=== PATIENT | male | born 1970 | race Caucasian/White ===

== ENCOUNTER 2019-12-30 12:37 | Emergency (ER) | payer OTHER, SELFPAY ==
[2019-12-30 12:45] VITALS: BP 119/64; PULSE 61; RESP 16; TEMP 36.4; O2SAT 100
--- NOTE | 2019-12-30 12:46 | ED.URI ---
HPI - URI/Sore Throat General Chief Complaint: Upper Respiratory Infection Stated Complaint: sinus issues Source: patient and RN notes reviewed Limitations: no limitations History of Present Illness HPI Narrative: The active patient, who is a non-smoker/occ drinker presents with sinus problems. Patient states he has been seen by ENT and had surgery a couple years ago; additionally he has had 3 courses of antibiotics in the first half of the year [Augmentin, Levaquin, etc. in Apr/June/August 2019]. He complains of typical 2-week history of sinus headache, nasal congestion despite OTC preparations like Zyrtec and Flonase. No fever measured, loss of taste/smell, travel history, CP, rash, S OB, cough, N/V/D,no triggers: no Smokers-but he does have pets at home. Symptoms are mild, worse at night, associated with sneezing-without wheezing. Patient advised to see ENT in follow-up Related Data Home Medications Medication Instructions Recorded Confirmed losartan-hydrochlorothiazide tablet 12/30/19 omeprazole 12/30/19 Allergies Allergy/AdvReac Type Severity Reaction Status Date / Time No Known Drug Allergies Allergy Mild none Verified 01/08/19 11:48 Review of Systems Review of Systems: Narrative: General/Constitutional: No weight loss,fever Eyes: N0: Redness,discharge Ears/Nose/Throat: No: Epistaxis,ear discharge Respiratory: Denies: Hemoptysis Gastrointestinal: No Vomiting, Bleeding-rectal Skin: No Lumps, eruption Neurologic: No Focal Weakness,Sz Hematologic: Denies: Petechiae/Purpura Psychiatric: No: Suicida ideationl All Other Systems: Reviewed and Negative PMFSH Comments At time of signature, agree with nursing past medical, surgical, social and family history. There is no relevant family history pertinent to the presenting complaint Exam Narrative: Exam Narrative: General Appearance: Well appearing, Conjunctiva clear Nose: Rhinorrhea, Mucousal erythema Mouth/Throat: MM moist, absent, Pharyngeal erythema Supple Respiratory: No respiratory distress, Breath sounds equal, Clear to auscultation Musculoskeletal: Non tender, Normal strength Skin: Warm, Dry Neurological: A&O x3, Normal affect Course Vital Signs Vital signs: Vital Signs Temperature 97.6 F 12/30/19 12:45 Pulse Rate 61 12/30/19 12:45 Respiratory Rate 16 12/30/19 12:45 Blood Pressure 119/64 12/30/19 12:45 Pulse Oximetry 100 12/30/19 12:45 Temperature 97.6 F 12/30/19 12:45 Pulse Rate 61 12/30/19 12:45 Respiratory Rate 16 12/30/19 12:45 Blood Pressure 119/64 12/30/19 12:45 Pulse Oximetry 100 12/30/19 12:45 Discharge Plan Discharge Clinical Impression: Sinus headache Patient Disposition: Home, Self-Care Condition: Stable Instructions: Antibiotic Form, Sinusitis (ED) Prescriptions: New azithromycin 250 mg tablet See Rx Instructions .ROUTE .COMPLEX Qty: 6 RF: 0 azelastine 137 mcg (0.1 %) aerosol,spray 137 mcg NASAL Q12H Qty: 30 RF: 0 montelukast [Singulair] 10 mg tablet 10 mg PO HS Qty: 20 RF: 2 [id number] [Fioricet] 50-300-40 mg capsule 1 cap PO Q8H PRN (Reason: pain) Qty: 7 RF: 1 No Action omeprazole 40 mg capsule,delayed release(DR/EC) RF: 0 losartan-hydrochlorothiazide 100-12.5 mg tablet RF: 0 Other Ambulatory Orders: SARS-CoV-2 RNA, Qual RT-PCR (Routine) Location: Determined by Patient Ordered By: Carl Cruz Follow-up/Referrals: Aguilar,Carl Garner MD [Primary Care Provider] - Discharge Date/Time: 12/30/19 13:10
== END 2019-12-30 13:10 | disposition home or self-care (01) ==
PROVIDERS: Emergency Provider Emergency Medicine; PCP Family Medicine
DX: R51.9 Headache, unspecified (principal); Z20.828 Contact with and (suspected) exposure to other viral communicable diseases; I10 Essential (primary) hypertension; K21.9 Gastro-esophageal reflux disease without esophagitis
CPT/HCPCS: 99213; G0463

== ENCOUNTER 2020-09-16 15:26 | Emergency (ER) | payer OTHER, SELFPAY ==
[2020-09-16 15:34] VITALS: BP 120/68; PULSE 77; RESP 16; TEMP 36.9; O2SAT 100
--- NOTE | 2020-09-16 16:00 | ED.URI ---
HPI - URI/Sore Throat General Chief Complaint: Upper Respiratory Infection Stated Complaint: no voice/drainage/sore throat/[place] Time Seen by Provider: 09/16/20 15:51 Source: patient and RN notes reviewed Mode of arrival: ambulatory Limitations: no limitations History of Present Illness HPI Narrative: Patient presents today complaining of sinus congestion and drainage times several weeks. Patient was on a course of amoxicillin and June which provided some temporary relief of symptoms, then a course of Augmentin that he started at the end of July for 10 days. States his symptoms returned after several days of stopping this as well. He also complains of a 3-day history of voice hoarseness and a 4-day history of sore throat. Denies shortness of breath, fever, cough. He is a non-smoker. Denies history of COPD or asthma. History of 2 sinus surgeries and does have an ENT physician. He has been using Tylenol, ibuprofen, Sudafed, guaifenesin with some mild short-term relief. MD elicited complaint: sore throat and nasal congestion Related Data Home Medications Medication Instructions Recorded Confirmed losartan-hydrochlorothiazide 12.5 tablet PO DAILY 12/30/19 09/16/20 omeprazole 40 mg PO DAILY 12/30/19 09/16/20 cetirizine [Zyrtec] 10 mg PO DAILY 09/16/20 09/16/20 fluticasone propionate [Flonase] 50 mcg INTRANASAL DAILY 09/16/20 09/16/20 Allergies Allergy/AdvReac Type Severity Reaction Status Date / Time No Known Drug Allergies Allergy Mild none Verified 09/16/20 15:40 Review of Systems Review of Systems: Narrative: CONSTITUTIONAL: Denies body aches, fever, chills, or sweats. EYES: Denies visual changes, redness, or discharge. ENT: Denies rhinorrhea, or otalgia.+ Throat, congestion, postnasal drip, hoarseness CARDIOVASCULAR: Denies chest pain, palpitations, or edema. RESPIRATORY: Denies cough or dyspnea. GASTROINTESTINAL: Denies abdominal pain, nausea, vomiting, or diarrhea. GENITOURINARY: Denies dysuria or hematuria. SKIN: Denies rash, itching, or wounds. MUSCULOSKELETAL: Denies back pain, joint pain, or myalgia. NEUROLOGIC: Denies headache, numbness, tingling, or weakness. PSYCH: Denies depression or anxiety. [facility] Past Medical History Medical History (Updated 09/16/20 @ 16:05 by Vania Del Rosario, EPHRAIM, ) GERD (gastroesophageal reflux disease) Hypertension Surgical History Surgical History (Updated 09/16/20 @ 16:03 by Vania Del Rosario, EPHRAIM, ) H/O sinus surgery Comments At time of signature, I have reviewed and agree with nursing past medical, surgical, social and family history unless otherwise noted. Please see nursing chart for further information. There is no relevant family history pertinent to the presenting complaint Exam Narrative: Exam Narrative: GENERAL: Well-appearing, well-nourished, and in no acute distress. HEAD: Normocephalic, atraumatic. EYES: EOMI. No redness or drainage. Conjunctivae normal. ENT: Mucous membranes pink and moist. Nares congested. No rhinorrhea. TMs normal bilaterally. Throat erythematous without edema or exudate. Uvula midline. Voice is very hoarse. NECK: Normal AROM. Supple. No lymphadenopathy. CHEST: No respiratory distress. Clear to auscultation. HEART: Regular rate and rhythm. No murmur appreciated. Normal peripheral pulses. EXTREMITIES: Normal range of motion. No edema. SKIN: Warm, dry, no rash. Capillary refill normal. Normal skin turgor. NEURO: No focal deficits. Alert and oriented x3. Gait steady. PSYCH: Normal affect. No signs of depression or anxiety. Course Vital Signs Vital signs: Vital Signs Temperature 98.5 F 09/16/20 15:34 Pulse Rate 77 09/16/20 15:34 Respiratory Rate 16 09/16/20 15:34 Blood Pressure 120/68 09/16/20 15:34 Pulse Oximetry 100 09/16/20 15:34 Temperature 98.5 F 09/16/20 15:34 Pulse Rate 77 09/16/20 15:34 Respiratory Rate 16 09/16/20 15:34 Blood Pressure 120/68 09/16/20 15:34 Pulse Oximetry 100
== END 2020-09-16 16:14 | disposition home or self-care (01) ==
PROVIDERS: Emergency Provider Nurse Practitioner; PCP Family Medicine
DX: J04.0 Acute laryngitis (principal); J01.91 Acute recurrent sinusitis, unspecified; K21.9 Gastro-esophageal reflux disease without esophagitis; I10 Essential (primary) hypertension
CPT/HCPCS: 87081; 87880; 99213; G0463

== ENCOUNTER 2020-10-14 17:03 | Emergency (ER) | payer OTHER, SELFPAY ==
--- NOTE | ~2020-10-14 | XR_ITS ---
EXAMINATION: XR sinus min 3V EXAM DATE: 10/14/2020 17:39 INDICATION: Sinusitis in the sphenoid sinuses. TECHNIQUE: Frontal, Christopher's, lateral and submental vertex of the paranasal sinuses. There is no len or study for comparison. FINDINGS: Paranasal sinuses appear well aerated. Please note that mild mucoperiosteal thickening not well detected by x-ray. Sphenoid sinuses are visualized on the lateral and submental vertex projecti ons and also appear aerated. Mild rightward nasal septal deviation. Orbits and soft tissues are unrem arkable. IMPRESSION: 1. No x-ray evidence of sinus opacity. Reviewed, dictated and finalized at location A.
[2020-10-14 17:15] VITALS: BP 119/78; PULSE 59; RESP 16; TEMP 36.6; O2SAT 100
--- NOTE | 2020-10-14 17:18 | ED.URI ---
HPI - URI/Sore Throat General Chief Complaint: Upper Respiratory Infection Stated Complaint: sinus issues History of Present Illness HPI Narrative: This is a 50-year-old male comes in complaining of nasal drainage, cough, hoarseness denies any fever denies any nausea vomiting and/or diarrhea. Patient believes he has a sinus infection in his Sphenoid area because he had surgery and that is the area that was not totally open. Patient has been on 4 round of antibiotics in the last three months and he states his symptoms clear up but it comes back 2-3 day after the symptoms start. Patient states he takes allergy medication and intranasal steroid. Patient inform me that he has had a sore throat and hoariness that has come back. Patient has explained to me that these antibiotic clear him up . Related Data Home Medications Medication Instructions Recorded Confirmed losartan-hydrochlorothiazide 12.5 tablet PO DAILY 12/30/19 09/16/20 omeprazole 40 mg PO DAILY 12/30/19 09/16/20 cetirizine [Zyrtec] 10 mg PO DAILY 09/16/20 09/16/20 fluticasone propionate [Flonase] 50 mcg INTRANASAL DAILY 09/16/20 09/16/20 Allergies Allergy/AdvReac Type Severity Reaction Status Date / Time No Known Drug Allergies Allergy Mild none Verified 09/16/20 15:40 Review of Systems Review of Systems: Narrative: CONSTITUTIONAL: Denies fever, chills, or sweats. EYES: Denies visual changes, redness, or discharge. ENT: Reports rhinorrhea, congestion, sore throat, or otalgia. CARDIOVASCULAR:Denies chest pain, palpitations, or edema. RESPIRATORY: Denies cough or dyspnea. GASTROINTESTINAL: Denies abdominal pain, nausea, vomiting, or diarrhea. GENITOURINARY: Denies dysuria or hematuria. SKIN:[Denies rash or itching. MUSCULOSKELETAL:Denies back pain, joint pain, or myalgia. NEUROLOGIC: Denies headache, numbness, or weakness. PSYCHIATRIC:Denies anxiety or depression [facility] Past Medical History Medical History (Updated 10/14/20 @ 18:10 by Eugenie Hagen, DALTON) GERD (gastroesophageal reflux disease) Hypertension Surgical History Surgical History (Updated 09/16/20 @ 16:03 by Vania Del Rosario, [employer]AGE CLERK, ) H/O sinus surgery Comments At time as signature, I have reviewed and agree with nursing past medical, social, surgical and family history. Please see nursing chart for further information. There is no relevant family history pertinent to the presenting complaint. Exam Narrative: Exam Narrative: GENERAL:Well-appearing, well-nourished, and in no acute distress. HEAD:Normocephalic, atraumatic. EYES: PERRLA and EOMI. ENT: Nares clear, mild rhinorrhea or epistaxis. Mucous membranes moist. Pharyngeal erythema no tonsils noted TM with clear fluid NECK: Supple. CHEST: Clear to auscultation. No respiratory distress. HEART: Regular rate and rhythm. No murmur heard. Normal peripheral pulses. ABDOMEN: Soft, nontender, nondistended, normal active bowel sounds. EXTREMITIES: Normal range of motion. No edema. SKIN: Warm, dry, no rash. NEURO: No focal deficits. Alert and oriented x3. Course [employer]TER/PA Physician Supervision No x ray Evidence of sinus Opacity Sphenoid sinus are visualized on the lateral and submenteal vertex projection also well aerated. I had a conversation with patient regarding this not being bacterial. He is adimit that he need these antibiotic or he does not want to go to the emergency room. Patient states he is going to make a appointment as soon as he comes back from his trip but he needs these antibiotic. Vital Signs Vital signs: Vital Signs Temperature 97.9 F 10/14/20 17:15 Pulse Rate 59 L 10/14/20 17:15 Respiratory Rate 16 10/14/20 17:15 Blood Pressure 119/78 10/14/20 17:15 Pulse Oximetry 100 10/14/20 17:15 Temperature 97.9 F 10/14/20 17:15 Pulse Rate 59 L 10/14/20 17:15 Respiratory Rate 16 10/14/20 17:15 Blood Pressure 119/78 10/14/20 17:15 Pulse Oximetry 100 10/14/20 17:15 MDM - URI/Sore Throat Dif
== END 2020-10-14 18:26 | disposition home or self-care (01) ==
PROVIDERS: Emergency Provider Nurse Practitioner Family; PCP Family Medicine
DX: J06.9 Acute upper respiratory infection, unspecified (principal); K21.9 Gastro-esophageal reflux disease without esophagitis; I10 Essential (primary) hypertension
CPT/HCPCS: 70220; 99213; G0463

== ENCOUNTER → 2021-04-11 01:00 | Outpatient (CLI) | payer OTHER, SELFPAY ==
[2021-04-12 18:18] LABS: SARS-CoV-2 RNA PCR Positive
== END ==
PROVIDERS: PCP Family Medicine; Visit Provider Family Medicine
DX: U07.1 COVID-19 (principal); R06.00 Dyspnea, unspecified
CPT/HCPCS: C9803; U0003; U0005